=== PATIENT | male | born 1985 | race Caucasian/White ===

== ENCOUNTER 2020-03-18 13:47 | Emergency (ER) | payer OTHER ==
[2020-03-18 14:05] VITALS: BP 156/98
[2020-03-18] MEDS ORDERED: BUFFERED LIDOCAINE 10 ML SYRINGE SUBQ STA (14:59)
--- NOTE | 2020-03-18 15:02 | ED Physician Documentation ---
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 Patient has an approximately 2 Inch laceration on the radial side of the wrist. Bleeding is controlled with pressure. He has normal flexion and extension of the wrist. Tetanus is up-to-date. Review of Systems Constitutional: denies: Fever, Chills Throat: denies: Dental pain / toothache Cardiac: denies: Chest pain / pressure, Palpitations Respiratory: denies: Dyspnea, Cough Skin: reports: Laceration (s) (left wrist) PD PAST MEDICAL HISTORY - Allergies Allergies/Adverse Reactions: Allergies Allergy/AdvReac Type Severity Reaction Status Date / Time No Known Drug Allergies Allergy Verified 03/18/20 14:01 PD ED PE EXPANDED - General General: Alert, No acute distress, Well developed/nourished, Disheveled, poorly kept - Extremities Extremities: Left wrist (2 inch laceration radial side wrist left. Normal flexion and extension of wrist against resistance. Normal material spreader. 2+ radial pulse. Normal CMST.) Results - Vitals Vitals: Vital Signs - 24 hr 03/18/20 14:01 Temperature 36.9 C Heart Rate 79 Respiratory 15 Rate Blood Pressure 156/98 H O2 Saturation 96 Oxygen O2 Source Room air - Rads (name of study) left wrist Radiology: Final report received (No visualized acute fracture dislocation) Procedures - Laceration (location) left wrist Wound type: Linear (2 inches) Neurovascular status: Sensory intact, Motor intact, Vascular intact Anesthesia: Lidocaine 1% Wound Preparation: Hibiclens Skin layer closure: Nylon, Sutures - enter # (5) Other: Patient tolerated well, No complications, Neurovascular intact, Dressing applied, Tetanus UTD Complexity: Simple PD MEDICAL DECISION MAKING - ED course Complexity details: reviewed results, d/w patient ED course: 35-year-old male presented to the emergency department with a left wrist laceration sustained at work. - Tetanus is up-to-date. X-ray reveals no foreign body or osseous deformity/fra cture - Wound easily closed with 5 four-point 0 nylon sutures. Patient given a wrist splint to help minimize movement while the injury heals. Routine wound care and return precautions discussed given timely closure and relatively clean appearance defer prophylactic antibiotics. - Sutures to be removed in 7 to 10 days. Departure - Departure Disposition: 01 Home, Self Care Clinical Impression: Wrist laceration Qualifiers: Encounter type: initial encounter Laterality: left Qualified Code(s): S61.512A - Laceration without foreign body of left wrist, initial encounter Condition: Stable Instructions: ED Laceration All Comments: Benton the 5 sutures in your left wrist should be removed in 7 to 10 days. This can be done in the emergency department any or any [facility] provider or even your primary care doctor's office. In 24 hours you may gently wash your wrist with warm soap and water. Then apply any antibiotic ointment like bacitracin.Please continue to wear the wrist splint to help minimize movement of the wrist while the laceration heals. However I do not feel that this injury will interrupt her ability to work. Return to the emergency department if you have fevers red streaking wrist swelling redness or milky drainage or any other concerns of infection.[id number] Tylenol or ibuprofen can be taken for analgesia.
--- NOTE | 2020-03-18 15:28 | XRAY Report ---
PROCEDURE: Wrist 3 View LT INDICATIONS: laceration r/o fx TECHNIQUE: 3 views of the wrist were acquired. COMPARISON: None FINDINGS: Bones: No fractures or dislocations. No suspicious bony lesions. Soft tissues: No suspicious soft tissue calcifications. IMPRESSION: No visualized acute fracture or dislocation. However, occult injury cannot be excluded. Recommend keren rt interval imaging follow-up in 7-10 days as clinically indicated for additional evaluation. Reviewed by: Liliam Mccracken MD on 03/18/2020 3:26 PM PDT Approved by: Liliam Mccracken MD on 03/18/2020 3:26 PM PDT Station ID: [id number]
[2020-03-18] MEDS ORDERED: BACITRACIN ZINC OINT 1 PACKET TOP STA (15:40)
== END 2020-03-18 15:56 | disposition home or self-care (01) ==
LOC: ED 13:47
DX: S61.512A Laceration without foreign body of left wrist, initial encounter (principal); W29.8XXA Contact with other powered hand tools and household machinery, initial encounter; Y92.89 Other specified places as the place of occurrence of the external cause; Y99.0 Civilian activity done for income or pay
CPT/HCPCS: 12001; 99283